=== PATIENT | male | born 1985 | race Caucasian/White ===

== ENCOUNTER 2021-10-21 19:53 | Emergency (ER) | payer OTHER ==
[~2021-10-21] VITALS: Ht 177.8 cm; Wt 100.7 kg
[~2021-10-21 19:53] MED LIST: AGM875T PO
[2021-10-21] MEDS ORDERED: CEPHALEXIN 250 MG (KEFLEX) CAP PO STA (20:10)
[2021-10-21] MEDS ORDERED: CEPH500T PO (20:15)
--- NOTE | 2021-10-21 20:16 | ED Lower Extremity ---
General Chief Complaint: Lower Extremity Stated Complaint: R LEG SWELLING Source: patient History of Present Illness Date Seen by Provider: October 21, 2021 Time Seen by Provider: 20:11 Initial Comments Patient is a 36-year-old male who presents ED with right anterior leg pain. Patient states pain started 2 days ago. Had a dull achy pain. States he got out of the car felt some mild discomfort to his right quad muscle. Woke up the next morning yesterday and started having more pain. Pain with walking.*Developed redness especially when he is up on his feet with redness radiating to the right knee. Denies of any specific fever, bruising, calf pain, hamstring pain, possible source of infection. Has been taking anti- inflammatories. Patient requesting work note. Schedule follow-up with Dr. Gooden on Sunday. Patient went to [facility] who recommended come to the ED and did not provide him any treatment. Allergies and Home Medications Allergies Coded Allergies: No Known Drug Allergies (Unverified , 02/03/11) Patient Home Medication List Home Medication List Reviewed: Yes Amoxicillin/Clavulanate K (Augmentin 875-125 Tablet) 1 Tab Tablet, 1 TAB PO BID Prescribed by: SANTO SALAZAR on 02/03/11228 Cephalexin (Cephalexin) 500 Mg Tablet, 500 MG PO QID Prescribed by: NEETA MARTINEZ on 10/21/212014 Review of Systems Constitutional: No chills, No diaphoresis, No malaise, No weakness EENTM: No blurred vision, No double vision, No mouth pain, No mouth swelling Respiratory: No cough, No dyspnea on exertion Cardiovascular: No chest pain, No edema Gastrointestinal: No abdominal pain, No diarrhea, No nausea, No vomiting Genitourinary: No decreased output, No discharge Musculoskeletal: No back pain; muscle pain Skin: change in color All Other Systems Reviewed Negative Unless Noted: Yes Past Kblxfxm-Xmmsmp-Ijhpya Hx Seasonal Allergies Seasonal Allergies: Yes Past Medical History Adenoidectomy, Tonsillectomy Tonsilitis Physical Exam Vital Signs Vital Signs - First Documented 10/21/21 20:01 Temp 37.0 Pulse 89 Resp 20 Pulse Ox 98 Capillary Refill : Height, Weight, BMI Height: 5'10" Weight: 210lbs. oz. 95.994508dg; BMI Method:Stated General Appearance: WD/WN, no apparent distress HEENT: PERRL/EOMI, normal ENT inspection, TMs normal, pharynx normal Neck: non-tender, full range of motion, supple, normal inspection Cardiovascular: regular rate, rhythm, no edema, no gallop, no JVD, no murmur Respiratory: chest non-tender, lungs clear, normal breath sounds, no respiratory distress Gastrointestinal: normal bowel sounds, non tender, soft, no organomegaly, no pulsatile mass Back: normal inspection, no CVA tenderness Legs: right leg swelling, right leg other (Erythema to the right thigh and right anterior knee) Knees: bilateral knee non-tender, bilateral knee normal inspection, bilateral knee normal range of motion Ankles: bilateral ankle non-tender, bilateral ankle normal inspection, bilateral ankle normal range of motion Skin: other (Mild erythema to the right anterior thigh with radiation to the proximal knee anterior. Mild induration noted to the anterior thigh without bruising. Mild warmth.) Progress/Results/Core Measures Results/Orders My Orders Orders - EDA ROB Cephalexin Capsule (Keflex Capsule) (10/21/21 20:10) Vital Signs/I&O 10/21/21 20:01 Temp 37.0 Pulse 89 Resp 20 B/P (MAP) Pulse Ox 98 Departure Communication (PCP) Patient states pain started after he stepped out of a car. Has no bruising but does have some redness and warmth noted on the anterior part of the leg. No hamstring or calf tenderness suggesting DVT. Normal active range of motion of the right knee. No evidence of septic joint. Does have some induration to the right anterior thigh. Possible infection etiology secondary to warmth. Pos sible muscular injury but concern for more cellulitis at this time. He does not want any work-up or imaging at this time. He scheduled follow-up with Dr. Gooden on Sunday. Patient was given dose of Keflex. Will discharge with Keflex. Discussed ice. He states he did get provement when he was not Up on his feet for long period of time. Requesting work note. Recommend anti-inflammatories for pain. Orthopedic follow-up. If worsening redness or swelling he needs return back to ED for concern at first worsening cellulitis. Impression Primary Impression: Leg pain Disposition: HOME, SELF-CARE Condition: Stable Departure-Patient Inst. Decision time for Depature: 20:14 Referrals: [facility] (PCP/Family) Primary Care Physician Patient Instructions: Cellulitis (Skin Infection), Adult (DC) Add. Discharge Instructions: If worsening redness, swelling to return back to ED for further evaluation All discharge instructions reviewed with patient and/or family. Voiced understanding. Scripts Cephalexin (Cephalexin) 500 Mg Tablet 500 MG PO QID for 7 Days, #28 TAB Prov: EDA ROB 10/21/21 Work/School Note: Work Release Form Date Seen in the Emergency Department: October 21, 2021 Return to Work: October 25, 2021 EDA ROB October 21, 2021 20:16
== END 2021-10-21 20:42 | disposition home or self-care (01) ==
LOC: EDUNIT# 19:53 → ER 19:56
DX: M79.604 Pain in right leg (principal); L53.9 Erythematous condition, unspecified
CPT/HCPCS: 99283